=== PATIENT | male | born 1950 | race Caucasian/White ===

== ENCOUNTER 2022-09-13 13:48 | Emergency (ER) | payer MEDICARE, SELFPAY ==
[2022-09-13 13:58] VITALS: BP 143/65; PULSE 64; RESP 16; TEMP 36.8; O2SAT 98; BMI 24.4
--- NOTE | 2022-09-13 14:03 | DI.RAD.S_ITS ---
PROCEDURE: XR ACUTE ABDOMEN SERIES INDICATIONS: constipation , abdominal pain TECHNIQUE: One view chest and two views of the abdomen were acquired. COMPARISON: None. FINDINGS: Surgical changes and devices: None. Chest: Lungs are clear. Heart size is normal. No pleural effusions. No pneumoperitoneum. Abdomen: Bowel gas pattern is normal. No suspicious calcifications. Visualized solid organ contours appear normal. Increased stool is seen in the bowel consistent with constipation. Bones: No suspicious bony lesions. IMPRESSION: Increased stool in the bowel consistent with constipation. Dictated by: Aime Beltrán M.D. on 09/13/2022 at 14:32 Approved by: Aime Beltrán M.D. on 09/13/2022 at 14:33
--- NOTE | 2022-09-13 15:40 | ED_ITS ---
HPI - Abdominal Pain General Chief Complaint: Abdominal Pain Stated Complaint: lower ABD pain/ constipation Time Seen by Provider: 09/13/22 15:14 Source: patient Mode of arrival: Family Vehicle History of Present Illness HPI narrative: Patient is a 72-year-old male who presents today with constipation. He reports that he has a history of constipation he was in the hospital a year ago for it he is since had a colonoscopy and now he monitors his bowel habits. He says for the last 4 days he has had small her bowel movements. He feels like he is pressure in his abdomen and increasing pain to today. No fever chills. No nausea or vomiting. No painful or frequent urination. X-ray confirms constipation. He is requesting an enema. Related Data Allergies Allergy/AdvReac Type Severity Reaction Status Date / Time No Known Drug Allergies Allergy Verified 09/13/22 14:02 Review of Systems Review of Systems ROS Unobtainable: All systems reviewed & are unremarkable except as noted in HPI and below Patient History Social History Smoking Status: Never smoker Smoking Status: Never smoker alcohol intake frequency: 0-2 drinks per day Substance Use Type: does not use Exam Initial Vital Signs Initial Vital Signs: Vital Signs Temperature 98.3 F 09/13/22 13:58 Pulse Rate 64 09/13/22 13:58 Respiratory Rate 16 09/13/22 13:58 Blood Pressure 143/65 H 09/13/22 13:58 Pulse Oximetry 98 09/13/22 13:58 Oxygen Delivery Method Room Air 09/13/22 13:58 GENERAL: Alert very well-appearing 72-year-old male and in no acute distress. HEENT: Head atraumatic,EOMI, pupils reactive, face symmetric, moist mucous membranes CARDIOVASCULAR: Regular rate and rhythm without murmurs, rubs or gallops. RESPIRATORY: Breath sounds equal bilaterally, no wheezes rales or rhonchi. ABDOMEN: Soft, no distention mild lower abdominal tenderness without guarding or rebound : No CVA tenderness EXTREMITIES: Normal range of motion, no clubbing or edema. Neurovascularly intact NEUROLOGICAL: Alert and oriented x4.Normal gait and speech. SKIN: Warm, dry, no laceration, no petechiae, no rashes or lesions. Course Orders Ordered: ED Orders 09/13/22 14:03 XR acute abdomen series Stat Discontinued Medications Magnesium Citrate (Magnesium Citrate 300 Ml Solution) 300 ml PO NOW ONE Stop: 09/13/22 17:12 Last Admin: 09/13/22 17:23 Dose: 300 ml Documented By: EPI Sodium Biphosphate/Sodium Phosphate (Fleets Enema) 1 each TN NOW ONE Stop: 09/13/22 16:30 Last Admin: 09/13/22 16:39 Dose: 1 each Documented By: EPI Vital Signs Vital signs: Vital Signs - 8 hr 09/13/22 13:58 09/13/22 17:19 09/13/22 17:25 Temperature 98.3 F 98.6 F Pulse Rate 64 70 70 Respiratory Rate 16 16 16 Blood Pressure 143/65 H 128/61 128/61 Pulse Oximetry 98 98 98 Oxygen Delivery Method Room Air Room Air Room Air MDM - Abdominal Pain Imaging Data Abdominal x-ray: Radiologist's Impression: PROCEDURE:? XR ACUTE ABDOMEN SERIES ? INDICATIONS:? constipation , abdominal pain ? TECHNIQUE:? One view chest and two views of the abdomen were acquired.? ? COMPARISON:? None. ? FINDINGS:? ? Surgical changes and devices:? None.? ? Chest:? Lungs are clear.? Heart size is normal.? No pleural effusions.? No pneumoperitoneum.? ? Abdomen:? Bowel gas pattern is normal.? No suspicious calcifications.? Visualized solid organ contours appear normal.? Increased stool is seen in the bowel consistent with constipation. ? Bones:? No suspicious bony lesions.? ? IMPRESSION:? Increased stool in the bowel consistent with constipation. ? ? ? Dictated by: Aime Beltrán M.D. on 09/13/2022 at 14:32 ? [facility] Narrative Medical decision making narrative: Patient 72-year-old male history of hyperlipidemia presenting today with abdominal discomfort requesting an enema. X-ray does show constipation. I had a long discussion with p.m. his in regards to VB requiring further workup. However at this time he is declining to have blood work and a CT. He feels like he would just like to try an enema. He understands fully that this maybe something else but does not want to wait any longer and would just like the enema. His vitals are stable he is nontoxic he does not have an acute abdomen no obstruction or foreign body is seen on the x-ray. He agrees to return to any ED if his symptoms worsen. Patient received an enema in the ED he had a successful bowel movement felt better. Symptoms are consistent with constipation, nonetheless encouraged to return to ED if symptoms worsen. Discharge Plan Departure Patient Disposition: Home Clinical Impression: Constipation Instructions: DI for Constipation Activity Restrictions/Additional Instructions: *You have been diagnosed with constipation *What to do: Increase fluid intake. If you should continue to have symptoms you likely require further workup including blood work and a possible CT scan. You may return to any emergency department in the country for this. *Continue to take medications as directed Magnesium citrate 1 bottle once if needed *Follow up with your primary care provider in 2-3 days or call [phone] *Return to ER if you should have increasing abdominal pain nausea vomiting fever or any new, worsening or concerning symptoms Referrals: [place],Doctor, [Primary Care Provider] - Stand Alone Forms: Patient Portal/API
[2022-09-13] MEDS: FLEETS ENEMA 1 EACH PR (16:39)
[2022-09-13 17:19] VITALS: BP 128/61; PULSE 70; RESP 16; O2SAT 98
[2022-09-13] MEDS: MAGNESIUM CITRATE 300 ML SOLUTION PO (17:23)
[2022-09-13 17:25] VITALS: BP 128/61; PULSE 70; RESP 16; TEMP 37; O2SAT 98
== END 2022-09-13 17:15 | disposition home or self-care (01) ==
LOC: ED 15:14 → AC 16:21 → ED 16:36
PROVIDERS: Emergency Provider Emergency Medicine; Referring Provider Emergency Medicine
DX: K59.00 Constipation, unspecified (principal)
CPT/HCPCS: 74022; 99283; 99284